=== PATIENT | male | born 1960 | race Caucasian/White ===

== ENCOUNTER 2018-02-11 08:09 | Day surgery (SDC) | payer BC ==
[~2018-02-11] VITALS: Ht 185.4 cm; Wt 101.4 kg
[~2018-02-11 08:09] MED LIST: ASPI325T PO; FISH1000 PO; HYDR-3580 PO; LEVEMIR SC; SYNT175T PO; VICT18IN SQ
[2018-02-11] MEDS ORDERED: METF500T PO (09:05)
[2018-02-11] MEDS ORDERED: LISI-515 PO (09:05)
[2018-02-11] MEDS ORDERED: DAPA1TAB3 PO (09:05)
[2018-02-11] MEDS ORDERED: DULA0.5I SQ (09:05)
[2018-02-11] MEDS ORDERED: DULO1CAP2 PO (09:05)
[2018-02-11] MEDS ORDERED: ASPI81CH6 CHEW (09:05)
[2018-02-11] MEDS ORDERED: HYDR-3583 PO (09:05)
[2018-02-11 09:10] VITALS: BP 133/67; PULSE 88; RESP 16; TEMP 98; O2SAT 97
[2018-02-11] MEDS ORDERED: POVIDONE IODINE 5% (ANTISEPSIS KIT) 4 APPLICATIONS EACH NARE PRN (09:15)
[2018-02-11] MEDS ORDERED: INSULIN HUMAN REGULAR 1,000 UNITS/10 ML VIAL SQ PRN (09:15)
[2018-02-11] MEDS ORDERED: METOPROLOL TARTRATE 25 MG TAB PO PRN (09:15)
[2018-02-11] MEDS ORDERED: LACTATED RINGER'S 1000 ML IV PRN (09:15)
[2018-02-11] MEDS ORDERED: CHLORHEXIDINE GLUCONATE 2 % 1 PACK (2 CLOTHS) TOPICAL PRN (09:15)
[2018-02-11] MEDS ORDERED: SODIUM CHLORID 0.9% 500 ML IV PRN (09:15)
[2018-02-11] MEDS ORDERED: GADODIAMIDE PF 287 MG/ML 20 ML VIAL (for RAD MRI) IV PUSH ONE (11:15)
--- NOTE | 2018-02-11 12:07 | RADRPT ---
EXAM DATE/TIME: 02/11/2018 10:53 [facility] COMPARISON: No previous studies available for comparison. INDICATIONS : Lower back pain radiation down right lower extremities. MEDICAL HISTORY : Diabetes mellitus type 2. MRSA SURGICAL HISTORY : lumbar laminectomy, lt leg ORIF ENCOUNTER: Subsequent ACUITY: 7-11 months PAIN SCORE: 7/10 LOCATION: lower back TECHNIQUE: Multiplanar, multisequence magnetic resonance imaging of the pelvis was performed. FINDINGS: No acute findings identified within the pelvis. His previous fixation of a proximal left femur. No ev idence for fracture. On the sagittal images it is noted that there is an anterolisthesis of L5 with canal stenosis at this level. MRI lumbar spine is pending. No free fluid in the pelvis. No adenopathy is seen. No pelvic mass is identified. CONCLUSION: 1. No acute findings in the bony pelvis. Previous left hip fixation. Anterolisthesis of L4-5 with canal stenosis. MRI lumbar spine is pending. Shaq Santoyo MD on February 11, 2018 at 12:01 Board Certified Radiologist. This report was verified electronically.
[2018-02-11 12:35] VITALS: BP 113/76; PULSE 95; RESP 16; TEMP 98.3; O2SAT 97
[2018-02-11] MEDS ORDERED: DO NOT ADM ANY ANTICOAGULANT DRUGS PRN (12:45)
--- NOTE | 2018-02-11 13:12 | RADRPT ---
EXAM DATE/TIME: 02/11/2018 10:53 [facility] COMPARISON: No previous studies available for comparison. INDICATIONS : Lower back pain radiation down lower extremities. CONTRAST: 20 cc Omniscan (gadodiamide) IV MEDICAL HISTORY : Diabetes mellitus type 2. MRSA SURGICAL HISTORY : lumbar laminectomy, lt leg ORIF ENCOUNTER: Subsequent ACUITY: 7-11 months PAIN SCORE: 7/10 LOCATION: lower back TECHNIQUE: Multiplanar multisequence MRI of the lumbar spine was performed with and without contrast. FINDINGS: At L1-2-3-4 there is mild degenerative change not significant canal or foraminal stenosis. At L4-5 there is advanced degenerative change with endplate marrow changes, marked disc space narrowi ng and a grade 1 anterolisthesis with bilateral pars defects. There is also a broad-based posterior d isc protrusion. This results in a moderate central canal stenosis. There is severe bilateral foramina l stenosis with compression on the exiting L. old nerve roots bilaterally. L5-S1 there is a mild broad-based disc protrusion and facet arthropathy. No central canal stenosis. M ild bilateral foraminal stenosis with minimal impression on the exiting L5 nerve roots. Post contrast images reveal enhancement at the stress related degenerative change at L4-5. Previous l aminectomy changes noted at L4-5. CONCLUSION: 1. Advanced degenerative disc disease at L4-5 with a broad-based disc protrusion, grade 1 anterolisth esis with pars defects and post laminectomy changes posteriorly. There is a moderate central canal st enosis and severe bilateral foraminal stenosis with flattening of the exiting L4 nerve roots bilatera lly. 2. L5-S1 is a mild broad-based disc protrusion with mild to moderate bilateral foraminal stenosis and slight impression on the exiting L5 nerve roots bilaterally. Shaq Santoyo MD on February 11, 2018 at 13:06 Board Certified Radiologist. This report was verified electronically.
--- NOTE | 2018-02-11 22:58 | EKG ---
Date Performed: 02/11/2018 Time Performed: 09:10:47 PTAGE: 57 years EKG: Sinus rhythm BORDERLINE LEFT AXIS DEVIATION NONSPECIFIC T-WAVE ABNORMALITY BORDERLINE ECG PREVIOUS TRACING : 01/24/2014 15.15 Compared to previous tracing sinus tachycardia is no longer present DOCTOR: Ephraim Klein Interpretating Date/Time 02/11/2018 22:57:33
== END 2018-02-11 13:00 | disposition home or self-care (01) ==
LOC: HRAD 08:09 → HRIP 08:10 → EDSTATUS 10:30 → HRAD 13:00
PROVIDERS: ATTEND Orthopaedic Surgery Orthopaedic Surgery of the Spine
DX: M51.26 Other intervertebral disc displacement, lumbar region (principal); E11.9 Type 2 diabetes mellitus without complications; M48.061 Spinal stenosis, lumbar region without neurogenic claudication; M51.36 Other intervertebral disc degeneration, lumbar region; R94.31 Abnormal electrocardiogram [ECG] [EKG]; Z79.4 Long term (current) use of insulin
CPT/HCPCS: 01922; 72158; 72195; 93005; A9579

== ENCOUNTER 2018-03-24 07:30 | Inpatient (IN) | payer BC ==
[~2018-03-24] VITALS: Ht 185.4 cm; Wt 102.2 kg
[~2018-03-24 07:30] MED LIST changes: -ASPI325T PO; +ASPI81CH6 CHEW; +DAPA1TAB3 PO; +DULA0.5I SQ; +DULO1CAP2 PO; -FISH1000 PO; -HYDR-3580 PO; +HYDR-3583 PO; -LEVEMIR SC; +LISI-515 PO; +METF500T PO; -SYNT175T PO; -VICT18IN SQ
[2018-03-24] MEDS ORDERED: SODIUM CHLORID 0.9% 500 ML IV PRN (08:15)
[2018-03-24] MEDS ORDERED: CHLORHEXIDINE GLUCONATE 4% SOLN 120 ML BTL TOPICAL SCH (08:15)
[2018-03-24] MEDS ORDERED: POVIDONE IODINE 5% (ANTISEPSIS KIT) 4 APPLICATIONS EACH NARE PRN (08:15)
[2018-03-24] MEDS ORDERED: ceFAZolin 2 GM PREMIX 50 ML IV SCH (08:15)
[2018-03-24] MEDS ORDERED: VANCOMYCIN 1000 MG/NS 250 ML (for <70 kg) IV SCH ×2 (08:15)
[2018-03-24] MEDS ORDERED: LACTATED RINGER'S 1000 ML IV PRN (08:15)
[2018-03-24] MEDS ORDERED: METOPROLOL TARTRATE 25 MG TAB PO PRN (08:15)
[2018-03-24] MEDS ORDERED: CHLORHEXIDINE GLUCONATE 2 % 1 PACK (2 CLOTHS) TOPICAL PRN (08:15)
[2018-03-24] MEDS ORDERED: GENTAMICIN SULFATE 80 MG/2 ML VIAL ONE (10:12)
[2018-03-24] MEDS ORDERED: fentaNYL CITRATE 250 MCG/5 ML AMP ONE (10:56)
[2018-03-24] MEDS ORDERED: LIDOCAINE HCL 2% 20 ML VIAL ONE ×2 (11:40→13:55)
[2018-03-24] MEDS ORDERED: ACETAMINOPHEN 1000 MG/100 ML 100 ML IV ONE (11:40)
[2018-03-24] MEDS ORDERED: KETAMINE HCL 500 MG/10 ML VIAL ONE (11:43)
[2018-03-24] MEDS ORDERED: SODIUM CHLOR 0.9% 250 ML INJ 250 ML ONE (11:56)
[2018-03-24] MEDS ORDERED: VANCOMYCIN HCL 1000 MG VIAL ONE ×2 (11:56→15:29)
[2018-03-24] MEDS ORDERED: LIDOCAINE HCL 1% PF 5 ML AMPULE OTHER ONE (12:00)
[2018-03-24] MEDS ORDERED: NORMOSOL R INJ 2,000 ML IV ONE (12:00)
[2018-03-24] MEDS ORDERED: PHENYLEPH/NS 1000 MCG/10 ML SYR IV ONE (12:00)
[2018-03-24] MEDS ORDERED: PHENYLEPHRINE HCL 10 MG/ML VIAL IV ONE (12:00)
[2018-03-24] MEDS ORDERED: ePHEDrine/NS 25 MG/5 ML SYRINGE IV ONE (12:00)
[2018-03-24] MEDS ORDERED: ONDANSETRON HCL 4 MG/2 ML VIAL IV ONE (12:00)
[2018-03-24] MEDS ORDERED: SODIUM CHLOR 0.9% 250 ML INJ 500 ML IV ONE (12:00)
[2018-03-24] MEDS ORDERED: ROCURONIUM INJ 50 MG/5 ML SYRINGE IV PUSH ONE (12:00)
[2018-03-24] MEDS ORDERED: DEXAMETHASONE SOD PHOS 4 MG/ML VIAL IV ONE (12:00)
[2018-03-24] MEDS ORDERED: PROPOFOL 200 MG/20 ML AMP IV ONE (12:00)
[2018-03-24] MEDS ORDERED: NEOSTIGMINE 5 MG/5 ML SYRINGE IV PUSH ONE (12:00)
[2018-03-24] MEDS ORDERED: GLYCOPYRROLATE 1 MG/5 ML SYRINGE IV PUSH ONE (12:00)
[2018-03-24] MEDS: LACTATED RINGER'S 1000 ML INJ 1,000 ML IV SCH ×2 (15:36→19:33)
[2018-03-24] MEDS ORDERED: BISACODYL 10 MG SUPP RECTAL PRN (15:45)
[2018-03-24] MEDS ORDERED: SOD PHOSPHATE/SOD BIPHOSPHATE (ADULT) ENEMA 133ML PR PRN (15:45)
[2018-03-24] MEDS ORDERED: ONDANSETRON HCL 4 MG/2 ML VIAL IV PUSH PRN (15:45)
[2018-03-24] MEDS ORDERED: DEXTROSE 50% IN WATER 50 ML VIAL(D50) IV PUSH PRN (15:45)
[2018-03-24] MEDS ORDERED: NALOXONE HCL 0.4 MG/ML AMP IV PUSH PRN (15:45)
[2018-03-24] MEDS ORDERED: MORPHINE SULFATE 30 MG/30 ML PCA IV SCH (15:45)
[2018-03-24] MEDS ORDERED: MORPHINE SULFATE 8 MG/ML INJ IV PUSH PRN (15:45)
[2018-03-24] MEDS ORDERED: ACETAMINOPHEN/HYDROcodone 325 MG/7.5 MG TAB PO PRN ×2 (15:45)
[2018-03-24] MEDS ORDERED: GLUCAGON 1 MG/ML VIAL OTHER PRN (15:45)
[2018-03-24] MEDS ORDERED: ALUMINUM/MAGNESIUM/SIMETH 30 ML CUP PO PRN (15:45)
--- NOTE | 2018-03-24 15:54 | PD.OP ---
cc: Sharan Caldwell MD Operative Report Date of Surgery: Mar 24, 2018 Preoperative Diagnosis: Status post lumbar laminectomy L4-5, remote. Spondylolisthesis L4-5, grade 2. Right lumbosacral radiculopathy. Herniated nucleus pulposus central, right, L4-5, foraminal. Postoperative Diagnosis: Same Procedure: Revision lumbar laminectomy L4-5 from the right with subtotal right facet resection and foraminal decompression, resection herniated nucleus pulposus. Reduction of spondylolisthesis L4-5. Posterior lateral interbody fusion, L4-5. Posterior spinal fusion, lateral transverse process technique, L4-5. Placement of interbody cage, L4-5. Posterior spinal segmental instrumentation, L4-5 Surgeon: Sharan Caldwell Data Developer(s): PHILIP Rios Operation and Findings: EBL: 300 ml NOTE: Shila Rios PA-C was present for the entire surgical procedure as my sales and marketing assistant. In my medical opinion her skill and care was necessary for proper management of this patient INDICATIONS: This patient is a 58-year-old male who approximately 30 years ago underwent a lumbar laminectomy L4-5. The patient did well but over the last 6- 12 months has had progressive pain radiating into the right leg especially. Investigative studies shows evidence of a very unstable spondylolisthesis at L4- 5 and a foraminal disc herniation to the right with severe foraminal stenosis and moderate instability related foraminal stenosis on the left side. She has had exhaustive conservative care including injections, physical therapy, medications and bracing. He now presents for surgical treatment INSTRUMENTATION: Ronald raven screws. Spine wave cage PROCEDURE: The patient brought to the operating room and anesthetized the supine position. The patient positioned prone on the Regulo frame on the Jose Rafael table. All pressure points are protected. The back was scrubbed with alcohol followed by Hibiclens followed by ChloraPrep and draped sterilely and antibiotics were given within a routine time window. A timeout was done. Lateral radiographic images used to identify the proper level for the procedure. Compared care for the preoperative studies. Skin markings were made anticipating surgical treatment. A right paramedian incision was made. The lamina and facet joint was exposed. There has been a previous laminectomy. We stayed to the outer edge of the previous lamina. We used a dilating retractor which was positioned over this region. The microscope was rolled into the field for visualization. A high- speed bur was used to take the lamina down and doing a subtotal facet resection. There was a high-grade foraminal stenosis. High degree of scar tissue was found. The cross nerve root was completely freed up. The exiting nerve root was trapped in the foramen related to scar tissue and a large disc herniation. The disc was removed. The exiting and crossing nerve roots were completely decompressed. A total discectomy was accomplished. The disc space was prepared. All cartilaginous material from the disc space was removed. A combination of demineralized bone matrix and Nucel stem cells were mixed together on the back table.. These were injected into the disc space. The cage was then placed according to director nicu's recommendation and deployed. Position was satisfactory. Additional bone graft was placed into the disc space. The reduction was very satisfactory at that point which was mostly a minimal to grade 1. The outer edge of the facet joint was identified and prepared. Under fluoroscopic images, a bur was used to gain entrance into the pedicle followed by placement of a blunt probe, an awl and placement of proper length screws. Each screw was charged with electric current there are no abnormal potentials registered in either lower extremity. A proper length ari was fitted and attached and tightened according to director nicu's recommendation. The wound was irrigated copiously. Bone grafting was placed along the lateral gutter in the region of the transverse process across this level. This was closed in layers with #1 Vicryl, 2-0 Vicryl and running intradermal 3-0 Vicryl followed by Steri-Strips and benzoin. On the contralateral side a separate exposure was made. The outer edge of the facet joints were identified. A bur was used to gain entrance into the pedicle followed by placement of a probe and proper length screws. Each screw was charged with electric current and no abnormal potentials registered in either lower extremity. The wound was irrigated copiously. Bone graft placed along the transverse process across this level. It was closed in layers using #1 Vicryl, 2-0 Vicryl and running intradermal 3-0 Vicryl followed by Steri-Strips and benzoin. Intraoperative radiographs were obtained. No complication was appreciated. The patient had a sterile dressing applied. The patient was awakened and taken to recovery room in satisfactory condition. FINDINGS: There is evidence of a high-grade foraminal stenosis and a very unstable spondylolisthesis. The final positioning appear to be excellent. I cannot perceive any complication. Alignment was very satisfactory Sharan Caldwell MD Mar 24, 2018 15:54
[2018-03-24] MEDS ORDERED: PERC7.5T13 PO (15:55)
[2018-03-24] MEDS ORDERED: oxyCODONE/ACETAMINOPHEN 7.5 MG/325 MG TAB PO PRN (16:00)
--- NOTE | 2018-03-24 16:03 | RADRPT ---
EXAM DATE/TIME: 03/24/2018 15:26 [facility] COMPARISON: No previous studies available for comparison. INDICATIONS : Fusion, l4-l5. MEDICAL HISTORY : None. SURGICAL HISTORY : None. ENCOUNTER: Initial ACUITY: 1 day PAIN SCORE: 0/10 LOCATION: Bilateral back FINDINGS: Two view intraoperative examination was performed. Bilateral transpedicular fixation at L4-5 interver tebral disc prosthesis. Hardware appears to be intact. No fracture. CONCLUSION: Appropriate postoperative appearance status post bilateral transpedicular fixation and intervert ebral disc prostheses at L4-5. Chau Moreno MD on March 24, 2018 at 16:00 Board Certified Radiologist. This report was verified electronically.
[2018-03-24] MEDS ORDERED: Post-op Orders (for Pharmacy) XX ONE (16:07)
[2018-03-24] MEDS ORDERED: DO NOT ADM ANY ANTICOAGULANT DRUGS PRN (16:12)
[2018-03-24] MEDS ORDERED: *morphine SULFATE 4 MG/ML PERIprocedure ONLY ONE (16:34)
[2018-03-24] MEDS ORDERED: MIDAZOLAM HCL 2 MG/2 ML VIAL ONE (16:46)
[2018-03-24] MEDS: metFORMIN HCL 500 MG TAB PO SCH (18:00)
[2018-03-24] MEDS: oxyCODONE/ACETAMINOPHEN 7.5 MG/325 MG TAB PO PRN (19:33)
[2018-03-24 20:00] VITALS: BP 127/65; PULSE 102; RESP 20; TEMP 97.4; O2SAT 96
[2018-03-24 20:55] VITALS: O2SAT 99
[2018-03-24] MEDS ORDERED: ZOLPIDEM TARTRATE 5 MG TAB PO PRN (21:00)
[2018-03-24] MEDS: PCA - TOTAL MG MORPHINE DELIVERED PER SHIFT SCH (22:00)
[2018-03-24] MEDS ORDERED: MAGNESIUM HYDROXIDE SUSP 30 ML CUP PO PRN (23:15)
[2018-03-25] VITALS: BP 116/56; PULSE 101; RESP 20; TEMP 98.3; O2SAT 99
[2018-03-25] MEDS: oxyCODONE/ACETAMINOPHEN 7.5 MG/325 MG TAB PO PRN ×3 (00:18→13:40)
[2018-03-25 04:00] VITALS: BP 114/57; PULSE 82; RESP 20; TEMP 98.4; O2SAT 95
[2018-03-25] MEDS: LACTATED RINGER'S 1000 ML INJ 1,000 ML IV SCH (05:34)
[2018-03-25] MEDS: PCA - TOTAL MG MORPHINE DELIVERED PER SHIFT SCH ×2 (06:00→14:00)
[2018-03-25 07:05] LABS: HEMATOCRIT 39.2 % (39.0-51.0); HEMOGLOBIN 13.4 GM/DL (13.0-17.0)
[2018-03-25 07:34] VITALS: BP 123/58; PULSE 80; RESP 19; TEMP 97.3; O2SAT 96
[2018-03-25] MEDS: metFORMIN HCL 500 MG TAB PO SCH (08:20)
[2018-03-25] MEDS ORDERED: LISINOPRIL 20 MG TAB PO SCH (09:00)
[2018-03-25] MEDS ORDERED: DULoxetine HCl DR 30 MG CAP PO SCH (09:00)
[2018-03-25] MEDS ORDERED: DAPAGLIFLOZIN 10 MG PO SCH (09:00)
[2018-03-25] MEDS ORDERED: WALKER WHEELS/F1 MIS (09:42)
--- NOTE | 2018-03-25 09:44 | HHI.FF ---
Face to Face Verification Diagnosis: (1) Lumbar spinal stenosis (2) Lumbar spine instability Physical Therapy Gait training, Safety evaluation, Transfer training, bed to chair S/P Spinal Fusion: Gait training with walker, Weight bearing as tolerated, No twisting of torso, No bending Additional Instructions PT 3x/week for 1 weeks. WBAT. Out of bed with brace for 10-12 weeks postop. No repetitive bending/twisting. Walking program encouraged as tolerated. Nursing RN Days per Week: 2 x Week(s): 1 Nursing: Dressing changes, Other Dressing Changes: Do not change dressing Additional Instructions Vitals assessment. Dressing assessment - do not change unless saturated or erythema. I have seen patient Augustus Westbrook on 03/25/18. My clinical findings support the need for the requested home health care services because: Limited ability to care for self High risk of falls I certify that my clinical findings support that this patient is homebound because: Post-op weakness Unsteady gait/balance Donna Smith Mar 25, 2018 09:44
--- NOTE | 2018-03-25 09:57 | HHI.DCPOC ---
Discharge Care Plan Diagnosis: (1) Lumbar spinal stenosis (2) Lumbar spine instability Your Health Problems Are: Difficulty with ADL Incision/Drains Swelling Goals to Promote Your Health * To prevent worsening of your condition and complications * To maintain your health at the optimal level Directions to Meet Your Goals Take your medications as prescribed Follow your dietary instruction Follow activity as directed Keep your appointments as scheduled Take your immunizations and boosters as scheduled If your symptoms worsen call your PCP, if no PCP go to Urgent Care Center or Emergency Room Smoking is Dangerous to Your Health. Avoid second hand smoke Call the 24-hour hour crisis hotline for domestic abuse at Donna Smith Mar 25, 2018 09:57
[2018-03-25] MEDS ORDERED: PNEUMOCOCCAL POLYVALENT INJ 25 MCG/0.5 ML SYR IM ONE (10:00)
[2018-03-25] MEDS ORDERED: INFLUENZA VIRUS VACCINE (QUADRIVALENT) 0.5 ML SYR IM ONE (10:00)
[2018-03-25 11:45] VITALS: BP 110/61; PULSE 83; RESP 19; TEMP 97.8; O2SAT 99
--- NOTE | 2018-03-25 12:21 | PD.CONS ---
HPI Service [facility] Consult Requested By DR ANDRÉS MAGAÑA MD Reason for Consult MEDICAL MANAGEMENT Primary Care Physician Margoth Lyles D.O. Diagnoses: (1) Lumbar spine instability (2) Lumbar spinal stenosis (3) Hypertension (4) Hyperlipidemia (5) COPD (chronic obstructive pulmonary disease) (6) Diabetes mellitus (7) Obesity History of Present Illness THE patient is a 58-year-old male who approximately 30 years ago underwent a lumbar laminectomy L4-5. The patient did well but over the last 6-12 months has had progressive pain radiating into the right leg especially AND WORSENING OF HIS LIFESTYLE AND DAILY ACTIVITIES. Investigative studies shows evidence of a very unstable spondylolisthesis at L4-5 and a foraminal disc herniation to the right with severe foraminal stenosis and moderate instability related foraminal stenosis on the left side. THE PATIENT has had exhaustive conservative care including injections, physical therapy, medications and bracing. He now presents for surgical treatment DUE TO FAILED CONSERVATIVE TREATMENTS PATIENT UNDERWENT HIS PROCEDURE AND WE HAVE BEEN CONSULTED FOR MEDICAL MANAGEMENT PATIENT HAS A HISTORY OF HYPERTENSION, HYPERLIPIDEMIA, COPD, AND DM AND A PRIOR HISTORY OF LUMBAR SURGERY Review of Systems Constitutional: COMPLAINS OF: Weight gain, DENIES: Diaphoretic episodes, Fatigue, Fever, Weight loss, Chills, Dizziness, Change in appetite, Night Sweats Endocrine: DENIES: Heat/cold intolerance, Polydipsia, Polyuria, Polyphagia Eyes: DENIES: Blurred vision, Diplopia, Eye inflammation, Eye pain, Vision loss , Photosensitivity, Double Vision Ears, nose, mouth, throat: DENIES: Tinnitus, Hearing loss, Vertigo, Nasal discharge, Oral lesions, Throat pain, Hoarseness, Ear Pain, Running Nose, Epistaxis, Sinus Pain, Toothache, Odynophagia Respiratory: DENIES: Apneas, Cough, Snoring, Wheezing, Hemoptysis, Sputum production, Shortness of breath Cardiovascular: DENIES: Chest pain, Palpitations, Syncope, Dyspnea on Exertion , PND, Lower Extremity Edema, Orthopnea, Claudication Gastrointestinal: DENIES: Abdominal pain, Black stools, Bloody stools, Constipation, Diarrhea, Nausea, Vomiting, Difficulty Swallowing, Anorexia Genitourinary: DENIES: Sexual dysfunction, Urinary frequency, Urinary incontinence, Urgency, Hematuria, Dysuria, Nocturia, Penile Discharge Musculoskeletal: COMPLAINS OF: Joint pain, Back pain, DENIES: Muscle aches, Stiffness, Joint Swelling Integumentary: DENIES: Abnormal pigmentation, Nail changes, Pruritus, Rash Hematologic/lymphatic: DENIES: Bruising, Lymphadenopathy Immunologic/allergic: DENIES: Eczema, Urticaria Neurologic: DENIES: Abnormal gait, Headache, Localized weakness, Paresthesias, Seizures, Speech Problems, Tremor, Poor Balance Psychiatric: DENIES: Anxiety, Confusion, Mood changes, Depression, Hallucinations, Agitation, Suicidal Ideation, Homicidal Ideation, Delusions Except as stated in HPI: all other systems reviewed are Neg Past Family Social History Allergies: Coded Allergies: No Known Allergies (Unverified Allergy, Unknown, 03/23/18) Past Medical History Hypothyroidism Headaches Hypertension Hypercholesterolemia COPD Diabetes mellitus Chronic back pain Osteoarthritis Past Surgical History L4-L5 laminectomy Hernia repair as a child I&D of right posterior thigh Left femur repair Reported Medications Reported Meds & Active Scripts Active Percocet (Oxycodone-Acetaminophen) 7.5-325 mg Tab 1 Tab PO Q4H PRN Reported Metformin (Metformin HCl) 500 Mg Tab 500 Mg PO BIDPC Farxiga (Dapagliflozin) 10 Mg Tab 10 Mg PO DAILY Aspirin Low Dose (Aspirin) 81 Mg Chew 81 Mg CHEW DAILY Duloxetine DR (Duloxetine HCl) 30 Mg Capdr 30 Mg PO DAILY Lisinopril 20 Mg Tab 20 Mg PO DAILY Trulicity Inj (Dulaglutide Inj) 1.5 Mg/0.5 Ml Pen 1.5 Mg SQ Q7D Hydrocodone-Acetaminophen 10-325 mg Tab 1 Tab PO Q4H PRN Active Ordered Medications Current Medications Lactated Ringer's 1,000 ml @ 30 mls/hr Q24H PRN IV SEE LABEL COMMENTS Last administered on 03/24/18at 08:53; Start 03/24/18 at 08:15; Stop 03/24/18 at 16:04 ; Status DC Sodium Chloride 500 ml @ 30 mls/hr [id number] PRN IV SEE LABEL COMMENTS; Start at 08:15; Stop 03/24/18 at 16:04; Status DC Metoprolol Tartrate (Lopressor) 25 mg WATER HAULER PRN PO SEE LABEL COMMENTS; Start 03/24/18 at 08:15; Stop 03/27/18 at 08:14 Povidone Iodine (Betadine 5% Antisepsis Kit) 1 applic WATER HAULER PRN EACH NARE SEE LABEL COMMENTS Last administered on 03/24/18at 08:53; Start 03/24/18 at 08:15 ; Stop 03/27/18 at 08:14 Chlorhexidine Gluconate (Chlorhexidine 2% Cloth) 3 pack WATER HAULER PRN TOPICAL SEE LABEL COMMENTS Last administered on 03/24/18at 08:54; Start 03/24/18 at 08:15 ; Stop 03/27/18 at 08:14 Chlorhexidine Gluconate (Hibiclens 4% Top Soln) 1 applic ONCE TOPICAL Last administered on 03/24/18at 08:53; Start 03/24/18 at 08:15; Stop 03/27/18 at 08:14 Cefazolin Sodium/ Dextrose 50 ml @ 100 mls/hr WATER HAULER IV Last administered on 03/24/18at 12:15; Start 03/24/18 at 08:15; Stop 03/24/18 at 16:10; Status DC Vancomycin HCl 1000 mg/Sodium Chloride 250 ml @ 250 mls/hr WATER HAULER IV ; Start 03/24/18 at 08:15; Stop 03/27/18 at 08:14 Gentamicin Sulfate (Gentamicin Inj) 160 mg STK-MED ONCE .ROUTE Last administered on 03/24/18at 12:58; Start 03/24/18 at 10:12; Stop 03/24/18 at 10:13 ; Status DC Fentanyl Citrate (fentaNYL INJ) 250 mcg STK-MED ONCE .ROUTE ; Start 03/24/18 at 10:56; Stop 03/24/18 at 10:57; Status DC Acetaminophen 100 ml @ As Directed STK-MED ONCE IV ; Start 03/24/18 at 11:40; Stop 03/24/18 at 11:41; Status DC Lidocaine HCl (Xylocaine 2% Inj) 20 ml STK-MED ONCE .ROUTE ; Start 03/24/18 at 11:40; Stop 03/24/18 at 11:41; Status DC Ketamine HCl (Ketalar Inj) 500 mg STK-MED ONCE .ROUTE ; Start 03/24/18 at 11:43 ; Stop 03/24/18 at 11:44; Status DC Vancomycin HCl (Vancomycin Inj) 1,000 mg STK-MED ONCE .ROUTE Last administered on 03/24/18at 12:15; Start 03/24/18 at 11:56; Stop 03/24/18 at 11:57; Status DC Sodium Chloride 250 ml @ As Directed STK-MED ONCE .ROUTE ; Start 03/24/18 at 11 :56; Stop 03/24/18 at 11:57; Status DC Lidocaine HCl (Xylocaine 2% Inj) 20 ml STK-MED ONCE .ROUTE ; Start 03/24/18 at 13:55; Stop 03/24/18 at 13:56; Status DC Vancomycin HCl (Vancomycin Inj) 1,000 mg STK-MED ONCE .ROUTE Last administered on 03/24/18at 15:29; Start 03/24/18 at 15:29; Stop 03/24/18 at 15:30; Status DC Duloxetine HCl (Cymbalta Dr) 30 mg DAILY PO Last administered on 03/25/18at 08: 20; Start 03/25/18 at 09:00 Lisinopril (Prinivil) 20 mg DAILY PO Last administered on 03/25/18at 08:20; Start 03/25/18 at 09:00 Metformin HCl (Glucophage) 500 mg BIDPC PO Last administered on 03/25/18at 08:20 ; Start 03/24/18 at 18:00 Patient Own Medication PT OWN MED: (Dapagliflozin (Farxiga)... DAILY PO ; Start 03/25/18 at 09:00; Status Future Hold Lactated Ringer's 1,000 ml @ 80 mls/hr [id number] IV Last administered on at 05:34; Start 03/24/18 at 15:36 Miscellaneous Information (Post-op Orders (for Pharmacy)) STAT ONCE XX ; Start 03/24/18 at 16:07; Stop 03/24/18 at 16:11; Status DC Cefazolin Sodium 1000 mg/Sodium Chloride 100 ml @ 200 mls/hr Q8H IV Last administered on 03/25/18at 05:33; Start 03/24/18 at 20:00; Stop 03/25/18 at 12:29 Acetaminophen/ Hydrocodone Bitart ([place] 7.5-325 Mg) 1 tab Q4H PRN PO PAIN SCALE 1 TO 5; Start 03/24/18 at 15:45; Status UNV Acetaminophen/ Hydrocodone Bitart ([place] 7.5-325 Mg) 2 tab Q6H PRN PO PAIN SCALE 6 TO 10; Start 03/24/18 at 15:45; Status UNV Ondansetron HCl (Zofran Inj) 4 mg Q6H PRN IV PUSH NAUSEA OR VOMITING; Start at 15:45 Docusate Sodium (Colace) 100 mg BID PO ; Start 03/25/18 at 21:00 Al Hydrox/Mg Hydrox/Simethicone (Mag-Al Plus Susp Liq) 30 ml Q6H PRN PO INDIGESTION; Start 03/24/18 at 15:45 Zolpidem Tartrate (Ambien) 5 mg HS PRN PO SLEEP; Start 03/24/18 at 21:00 Bisacodyl (Dulcolax Supp) 10 mg DAILY PRN RECTAL CONSTIPATION; Start 03/24/18 at 15:45 Sodium Biphosphate/ Sodium Phosphate (Fleets Enema (Adult)) 133 ml DAILY PRN MS CONSTIPATION NOT RESOLVED; Start 03/24/18 at 15:45 Naloxone HCl (Narcan Inj) 0.4 mg UNSCH PRN IV PUSH RESPIRATORY RATE LESS THAN 10; Start 03/24/18 at 15:45 Morphine Sulfate (Morphine 1 Mg/ ml [facility] CENTER MANAGER) 30 mg UNSCH IV Last administered on at 20:13; Start 03/24/18 at 15:45 ASSISTANT CENTER MANAGER Dosage Infused (Pha) 1 Q8HR .XX Last administered on 03/25/18at 06:00; Start 03/24/18 at 22:00 Morphine Sulfate (Morphine Inj) 5 mg Q4H PRN IV PUSH PAIN 7-10 IF NOT TOLERATING PO; Start 03/24/18 at 15:45 Dextrose (D50w (Vial) Inj) 50 ml UNSCH PRN IV PUSH HYPOGLYCEMIA-SEE COMMENTS; Start 03/24/18 at 15:45 Glucagon (Glucagon Inj) 1 mg UNSCH PRN OTHER HYPOGLYCEMIA-SEE COMMENTS; Start 03/24/18 at 15:45 Oxycodone/ Acetaminophen (Percocet 7.5-325 Mg) 1 tab Q4H PRN PO Pain 1-6 IF TOLERATING PO Last administered on 03/25/18at 08:19; Start 03/24/18 at 16:00 Oxycodone/ Acetaminophen (Percocet 7.5-325 Mg) 2 tab Q4H PRN PO pain 7-10 IF TOLERATING PO; Start 03/24/18 at 16:00 Morphine Sulfate (*morphine INJ PERIprocedure ONLY) 4 mg STK-MED ONCE .ROUTE ; Start 03/24/18 at 16:34; Stop 03/24/18 at 16:35; Status DC Midazolam HCl (Versed Inj) 2 mg STK-MED ONCE .ROUTE ; Start 03/24/18 at 16:46; Stop 03/24/18 at 16:47; Status DC Miscellaneous Information ALL NURSING DEPARTME... UNSCH PRN .XX SEE LABEL COMMENTS; Start 03/24/18 at 16:12; Stop 03/25/18 at 16:11 Pneumococcal Polyvalent Vaccine (Pneumovax-23 Inj) 25 mcg ONCE ONCE IM ; Start 03/25/18 at 10:00; Stop 03/25/18 at 10:01; Status Cancel Influenza Virus Vaccine (Flu (Quadrivalent) Vaccine Inj) 0.5 ml ONCE ONCE IM ; Start 03/25/18 at 10:00; Stop 03/25/18 at 10:01; Status DC Magnesium Hydroxide (Milk Of Magnyusuf Liq) 30 ml BID PRN PO MILD CONSTIPATION; Start 03/24/18 at 23:15 Family History Father had prostate cancer with metastasis to the bone Mother had urological cancer with metastasis to the bone Social History Lives with his significant other Does not smoke Denies any tobacco Denies any illicits Denies any alcohol Physical Exam Vital Signs Vital Signs Date Time Temp Pulse Resp B/P (MAP) Pulse Ox O2 Delivery O2 Flow Rate FiO2 03/25/18 11:45 97.8 83 19 110/61 (77) 99 03/25/18 09:19 18 03/25/18 07:34 97.3 80 19 123/58 (79) 96 03/25/18 06:00 16 03/25/18 04:00 98.4 82 20 114/57 (76) 95 03/25/18 00:00 98.3 101 20 116/56 (76) 99 03/24/18 22:00 17 03/24/18 20:55 99 21 03/24/18 20:13 15 03/24/18 20:00 97.4 102 20 127/65 (85) 96 03/24/18 17:45 97.8 92 16 102/57 (72) 100 Nasal Cannula 2 03/24/18 17:15 88 16 99/56 (70) 99 Nasal Cannula 2 03/24/18 17:00 92 17 103/50 (67) 99 Nasal Cannula 2 03/24/18 16:45 90 17 97/52 (67) 99 Nasal Cannula 2 03/24/18 16:30 83 15 90/53 (65) 99 Nasal Cannula 2 03/24/18 16:11 97.6 86 15 95/53 (67) 100 Nasal Cannula 2 Physical Exam GENERAL: This is a well-nourished, well-developed patient, in no apparent distress. SKIN: No rashes, ecchymoses or lesions. Cool and dry. HEAD: Atraumatic. Normocephalic. No temporal or scalp tenderness. EYES: Pupils equal round and reactive. Extraocular motions intact. No scleral icterus. No injection or drainage. ENT: Nose without bleeding, purulent drainage or septal hematoma. Throat without erythema, tonsillar hypertrophy or exudate. Uvula midline. Airway patent. NECK: Trachea midline. No JVD or lymphadenopathy. Supple, nontender, no meningeal signs. CARDIOVASCULAR: Regular rate and rhythm without murmurs, gallops, or rubs. S1- S2 no S3 or S4 RESPIRATORY: Clear to auscultation. Breath sounds equal bilaterally. No wheezes , rales, or rhonchi. GASTROINTESTINAL: Abdomen soft, non-tender, nondistended. No hepato-splenomegaly , or palpable masses. No guarding. MUSCULOSKELETAL: Extremities without clubbing, cyanosis, or edema. No joint tenderness, effusion, or edema noted. No calf tenderness. Negative Homans sign bilaterally. NEUROLOGICAL: Awake and alert. Cranial nerves II through XII intact. Motor and sensory grossly within normal limits. 4 out of 5 muscle strength in all muscle groups. Normal speech. Back brace in place Insight and judgment is good Mood and behavior is appropriate Laboratory Laboratory Tests Test 03/25/18 05:27 Hemoglobin 13.4 Hematocrit 39.2 Result Diagram: 03/25/18 0527 Imaging Last Impressions Lumbar Spine X-Ray 03/24/18 0000 Signed Impressions: Service Date/Time: Saturday, March 24, 2018 15:26 - CONCLUSION: Appropriate postoperative appearance status post bilateral transpedicular fixation and intervertebral disc prostheses at L4-5. Chau Moreno MD Assessment and Plan Assessment and Plan Patient is status post revision lumbar laminectomy L4-5 from the right with subtotal right facet resection and foraminal decompression, resection herniated nucleus pulposus. Reduction of spondylolisthesis L4-5. Posterior lateral interbody fusion, L4-5. Posterior spinal fusion, lateral transverse process technique, L4-5. Placement of interbody cage, L4-5. Posterior spinal segmental instrumentation, L4-5 -Deferred to orthopedics for pain control -Continue physical therapy and Occupational Therapy Hypertension resume home medications Hyperlipidemia resume home medications COPD continue home inhalers Diabetes mellitus continue on sliding scale coverage with Accu-Cheks before meals and at bedtime Diabetic diet Continue physical therapy and Occupational Therapy Pain control Remove [place] Code Status FULL CODE Discussed Condition With RN AND PT AND FAMILY AND CASE MANAGEMENT Problem Qualifiers (1) Lumbar spinal stenosis: Qualified Codes: M48.062 - Spinal stenosis, lumbar region with neurogenic claudication Suresh Trujillo DO Mar 25, 2018 12:20
[2018-03-25] MEDS ORDERED: GLUCAGON 1 MG/ML VIAL OTHER PRN (12:30)
[2018-03-25] MEDS ORDERED: DEXTROSE 50% IN WATER 50 ML VIAL(D50) IV PUSH PRN (12:30)
--- NOTE | 2018-03-25 13:16 | PD.ORT.PN ---
Subjective Subjective Remarks Sitting up in bed. Very pleased. Right leg feels 'so much better'. No new leg pain. Tolerating solids and liquids. Back is sore but 'fine'. Urinating well. Ready to d/c home 'when we are'. Objective Vitals Vital Signs Date Time Temp Pulse Resp B/P (MAP) Pulse Ox O2 Delivery O2 Flow Rate FiO2 03/25/18 11:45 97.8 83 19 110/61 (77) 99 03/25/18 09:19 18 03/25/18 07:34 97.3 80 19 123/58 (79) 96 03/25/18 06:00 16 03/25/18 04:00 98.4 82 20 114/57 (76) 95 03/25/18 00:00 98.3 101 20 116/56 (76) 99 03/24/18 22:00 17 03/24/18 20:55 99 21 03/24/18 20:13 15 03/24/18 20:00 97.4 102 20 127/65 (85) 96 03/24/18 17:45 97.8 92 16 102/57 (72) 100 Nasal Cannula 2 03/24/18 17:15 88 16 99/56 (70) 99 Nasal Cannula 2 03/24/18 17:00 92 17 103/50 (67) 99 Nasal Cannula 2 03/24/18 16:45 90 17 97/52 (67) 99 Nasal Cannula 2 03/24/18 16:30 83 15 90/53 (65) 99 Nasal Cannula 2 03/24/18 16:11 97.6 86 15 95/53 (67) 100 Nasal Cannula 2 I/O 03/24/18 03/24/18 03/24/18 03/25/18 03/25/18 03/25/18 07:00 15:00 23:00 07:00 15:00 23:00 Intake Total 2950 ml 1340 ml Output Total 825 ml 1950 ml Balance 2125 ml -610 ml Intake Oral 240 ml IV Total 2950 ml 1100 ml Output Urine Total 525 ml 1950 ml Estimated Blood Loss 300 ml Result Diagram: 03/25/18 0527 Objective Remarks Sitting up in bed NAD VSS L/S Dressing c/d/i, mild drainage, mild warmth, no erythema +motor at/ehl bilaterally, +sens, +nvi Neg homans bilaterally Assessment & Plan Ortho Post Op Day #: 1 Problem List: Assessment and Plan pod#1 s/p Rev Lami L45, PSF/PLIF/PSSI L45. Doing well. Pain controlled. Ok to d//c home today. PO meds as needed. Oxycodone written (pt on [place] previously) PT - WBAT. Walker as needed. Out of bed with brace for 10-12 weeks. Hold dressing changes unless saturated. F2F written. F/U in 2 weeks as scheduled. Donna Smith Mar 25, 2018 13:16
--- NOTE | 2018-03-25 13:18 | HHI.DS ---
Discharge Summary Admission Date Mar 24, 2018 at 07:38 Discharge Date: Mar 25, 2018 Admitting Diagnosis see below Diagnosis: (1) Lumbar spinal stenosis Diagnosis: Principal ICD Codes: M48.061 - Spinal stenosis, lumbar region without neurogenic claudication (2) Lumbar spine instability Diagnosis: Principal ICD Codes: M53.2X6 - Spinal instabilities, lumbar region Procedures Revision Laminectomy L45, lateral recess decompression, posterior lumbar fusion with interbody cage and segmental instrumentation L45, bone graft. Brief History This is a 58 year old male patient CBC/BMP: 03/25/18 0527 Significant Findings Laboratory Tests Test 03/25/18 05:27 PE at Discharge Sitting up in bed NAD VSS L/S Dressing c/d/i, mild drainage, mild warmth, no erythema +motor at/ehl bilaterally, +sens, +nvi Neg homans bilaterally Pt Condition on Discharge: Stable Discharge Disposition: Disch w/ Home Health Serv Discharge Instructions Diet Instructions: As Tolerated, No Restrictions, High Fiber Diet Activities You Can Perform: Weight Bearing as [place], See Additionl Instruction Additional Activity Instruc.: Out of bed with brace for 10-12 weeks. Donna Smith Mar 25, 2018 13:18
[2018-03-25 14:40] VITALS: RESP 18
[2018-03-25] MEDS ORDERED: INSULIN ASPART SUPPLEMENTAL SCALE SQ SCH (17:00)
[2018-03-25] MEDS ORDERED: DOCUSATE SODIUM 100 MG CAP PO SCH (21:00)
== END 2018-03-25 16:20 | disposition home or self-care (01) | DRG 460 ==
LOC: HSDI 07:38 → N06B 18:06
PROVIDERS: ADMIT Orthopaedic Surgery Orthopaedic Surgery of the Spine; ATTEND Orthopaedic Surgery Orthopaedic Surgery of the Spine
PROC: 0ST20ZZ Resection of Lumbar Vertebral Disc, Open Approach (ICD-10-PCS; 2018-03-24)
PROC: 0SG00AJ Fusion of Lumbar Vertebral Joint with Interbody Fusion Device, Posterior Approach, Anterior Column, Open Approach (ICD-10-PCS; principal; 2018-03-24 11:52)
DX: M43.16 Spondylolisthesis, lumbar region (principal); I10 Essential (primary) hypertension; M51.26 Other intervertebral disc displacement, lumbar region; M54.17 Radiculopathy, lumbosacral region; M48.061 Spinal stenosis, lumbar region without neurogenic claudication; E78.5 Hyperlipidemia, unspecified; J44.9 Chronic obstructive pulmonary disease, unspecified; E11.9 Type 2 diabetes mellitus without complications; Z79.84 Long term (current) use of oral hypoglycemic drugs; E66.9 Obesity, unspecified; Z68.29 Body mass index [BMI] 29.0-29.9, adult; E03.9 Hypothyroidism, unspecified; E78.00 Pure hypercholesterolemia, unspecified; Z79.82 Long term (current) use of aspirin; Z87.891 Personal history of nicotine dependence
CPT/HCPCS: 72100; 76000; 82948; 85014; 85018; 86077; 86850; 86870; 86900; 86901; 86902; 86920; 86922; 94150; C1713; J0131; J0690; J1100; J1580; J2250; J2270; J2370; J2405; J2710; J3010; J3370; J7050; J7120